=== PATIENT | female | born 1960 | race Caucasian/White ===

== ENCOUNTER 2024-10-16 16:25 | Inpatient (IN) | payer MEDICARE ==
[~2024-10-16] VITALS: Ht 160 cm; Wt 93.2 kg
[2024-10-16 17:13] LABS: BASO # 0.1 10^3/uL (0.0-0.2); BASO % 0.7 % (0.0-1.0); EOS # 0.4 10^3/uL (0.0-0.5); EOS % 4.6 % (0.0-3.0); HEMATOCRIT 31.8 % (36.0-47.0); HEMOGLOBIN 9.8 g/dl (12.0-15.5); LYMPH # 1.6 10^3/uL (1.5-5.0); LYMPH % 16.9 % (24.0-44.0); MEAN CORPUSCULAR HEMOGLOBIN 26.3 pg (27.0-33.0); MEAN CORPUSCULAR HGB CONC 30.8 g/dl (32.0-36.5); MEAN CORPUSCULAR VOLUME 85.3 fl (80.0-96.0); MONO # 0.8 10^3/uL (0.0-0.8); NEUTROPHILS # 6.6 10^3/uL (1.5-8.5); NEUTROPHILS % 69.4 % (36.0-66.0); PLATELET COUNT, AUTOMATED 221 10^3/uL (150-450); RED BLOOD COUNT 3.73 10^6/uL (4.00-5.40); WHITE BLOOD COUNT 9.4 10^3/uL (4.0-10.0)
[2024-10-16] MEDS: METOCLOPRAMIDE INJ 10MG/2ML VIAL IV ONE (17:31)
[2024-10-16] MEDS: FUROSEMIDE 40MG/4ML VIAL IV ONE ×2 (17:31→23:29)
[2024-10-16] MEDS: NITROGLYCERIN 2% OINT 1 GM *U/D* PKT TOP ONE (17:31)
[2024-10-16 17:35] LABS: CK-MB VALUE MASS 5.3 NG/ML (<3.6)
[2024-10-16 17:38] LABS: ALBUMIN 2.2 G/DL (3.2-5.2); ALKALINE PHOSPHATASE 79 U/L (35-104); ALT/SGPT 19 U/L (7.0-40); AST/SGOT 29 U/L (<34); BILIRUBIN,DIRECT < 0.1 MG/DL (<0.4); BILIRUBIN,TOTAL 0.3 MG/DL (0.3-1.2); BLOOD UREA NITROGEN 36 MG/DL (9-23); CALCIUM LEVEL 8.1 MG/DL (8.3-10.6); CARBON DIOXIDE LEVEL 22 MMOL/L (20-31); CHLORIDE LEVEL 116 MMOL/L (98-107); CREATININE FOR GFR 2.68 MG/DL (0.55-1.30); GLUCOSE, FASTING 129 MG/DL (74-106); POTASSIUM SERUM 4.4 MMOL/L (3.5-5.1); SODIUM LEVEL 149 MMOL/L (136-145); TOTAL PROTEIN 5.7 G/DL (5.7-8.2)
[2024-10-16 17:40] LABS: THYROID STIMULATING HORMONE 6.192 uIU/ML (0.55-4.78)
[2024-10-16 17:43] LABS: CPK CREATINE PHOSPHOKINASE 749 U/L (34-145)
[2024-10-16] MEDS ORDERED: CARV12.5 PO (18:34)
[2024-10-16] MEDS ORDERED: BASA100I SC (18:34)
[2024-10-16 18:55] LABS: CK-MB VALUE MASS 6.3 NG/ML (<3.6)
[2024-10-16 18:57] LABS: MB/CK RELATIVE INDEX 0.83 (< OR =4)
[2024-10-16] MEDS: cefTRIAXone SOD 2 GM in DEXTROSE 5% (D5W) ADV/MINI-BAG 50 ML IV ONE (20:07)
[2024-10-16] MEDS ORDERED: MAALOX 30 ML SUSP *UDC PO PRN (22:35)
[2024-10-16] MEDS ORDERED: GLUCOSE 4 GM CHEW PO PRN (22:35)
[2024-10-16] MEDS ORDERED: MOM 30ML SUSPENSION UDC PO PRN (22:35)
[2024-10-16] MEDS ORDERED: DEXTROSE 50% 50ML SYRINGE IV PRN (22:35)
[2024-10-16] MEDS ORDERED: NITROGLYCERIN 0.4MG SUBL TABLET SL PRN (22:35)
[2024-10-16] MEDS ORDERED: GLUCAGON INJ 1MG VIAL SC PRN (22:35)
[2024-10-17] VITALS (7 sets, daily range): BP systolic 140–172; BP diastolic 78–100; TEMP 97.8–99.6; O2SAT 96–98
[2024-10-17] MEDS: ACETAMINOPHEN 325 MG TAB PO PRN (01:40)
[2024-10-17] MEDS: HEPARIN SOD (PORCINE) 5000UNITS/ML 1ML VIAL/SYRINGE SC SCH (06:00)
[2024-10-17 06:24] LABS: HEMATOCRIT 29.5 % (36.0-47.0); HEMOGLOBIN 9.1 g/dl (12.0-15.5); MEAN CORPUSCULAR HEMOGLOBIN 26.5 pg (27.0-33.0); MEAN CORPUSCULAR HGB CONC 30.8 g/dl (32.0-36.5); PLATELET COUNT, AUTOMATED 190 10^3/uL (150-450); RED BLOOD COUNT 3.43 10^6/uL (4.00-5.40)
[2024-10-17 06:59] LABS: PERCENT SATURATION 16.1 % (13.2-45.0)
[2024-10-17 07:07] LABS: BILIRUBIN,TOTAL 0.3 MG/DL (0.3-1.2); CALCIUM LEVEL 8.1 MG/DL (8.3-10.6); CHOLESTEROL RISK RATIO 4.21 (<5); CREATININE FOR GFR 2.77 MG/DL (0.55-1.30); GLOMERULAR FILTRATION RATE 18.3 (>45); HDL CHOLESTEROL 42.9 MG/DL (>40); LDL CHOLESTEROL 111.1 MG/DL (<100); MAGNESIUM LEVEL 1.5 MG/DL (1.8-2.4); NON-HDL-C 138.1 MG/DL; PHOSPHORUS LEVEL 4.5 MG/DL (2.4-5.1); POTASSIUM SERUM 3.6 MMOL/L (3.5-5.1); TOTAL PROTEIN 5.1 G/DL (5.7-8.2)
[2024-10-17] MEDS: INSULIN LISPRO (NovoLOG) PER UNIT SC SCH (07:28)
[2024-10-17] MEDS: MAG SULF 1GM/100ML (MAG RUN) 1 GM in IV 1 EA IV SCH (08:07)
[2024-10-17] MEDS: DOCUSATE SODIUM 100MG CAPSULE PO SCH (08:08)
[2024-10-17] MEDS: FUROSEMIDE 100MG/10ML VIAL IV SCH ×2 (08:08→17:41)
[2024-10-17] MEDS ORDERED: LEVEMIR (INSULIN DETEMIR) 1 UNITS/0.01ML SC SCH (09:00)
[2024-10-17] MEDS ORDERED: MAGNESIUM OXIDE 400MG TAB (MAG-OX) PO SCH (09:00)
[2024-10-17] MEDS ORDERED: VALSARTAN 80 MG TAB (DIOVAN) PO SCH (09:00)
[2024-10-17] MEDS ORDERED: CARV25TA PO (11:57)
[2024-10-17] MEDS ORDERED: GLIP10TA15 PO (11:57)
[2024-10-17] MEDS ORDERED: ATOR40TA75 PO (11:57)
[2024-10-17] MEDS ORDERED: FURO20TA2 PO (11:57)
[2024-10-17] MEDS ORDERED: HOME MED LIST COMPLETE! XX SCH (12:00)
[2024-10-17] MEDS ORDERED: BAYE81TA10 PO (12:13)
[2024-10-17] MEDS: ASPIRIN 81MG CHEW TABLET PO SCH (13:24)
[2024-10-17] MEDS: CARVedilol 12.5 MG TAB PO SCH (13:24)
[2024-10-17] MEDS: FLUBLOK(EGGFREE) TRIVAL(24-25) VACCINE PF 0.5ML SYRINGE 18YRS & OLDER IM.IMMUN ONE (13:26)
[2024-10-17] MEDS: PREVNAR-20 VACCINE 0.5ML SYRINGE IM.IMMUN ONE (14:57)
[2024-10-17] MEDS: SPIRONOLACTONE 25 MG TAB PO SCH (17:41)
[2024-10-17] MEDS: cefTRIAXone SOD 1 GM in DEXTROSE 5% (D5W) ADV/MINI-BAG 50 ML IV SCH (20:05)
[2024-10-17] MEDS: MAGNESIUM OXIDE 400MG TAB (MAG-OX) PO SCH (20:06)
[2024-10-17] MEDS: ATORVASTATIN 20 MG TAB PO SCH (20:06)
[2024-10-18 03:32] VITALS: BP 140/90; TEMP 97.5; O2SAT 95
[2024-10-18 06:30] LABS: HEMATOCRIT 28.1 % (36.0-47.0); HEMOGLOBIN 8.9 g/dl (12.0-15.5); MEAN CORPUSCULAR HEMOGLOBIN 27.1 pg (27.0-33.0); MEAN CORPUSCULAR HGB CONC 31.7 g/dl (32.0-36.5); MEAN CORPUSCULAR VOLUME 85.4 fl (80.0-96.0); PLATELET COUNT, AUTOMATED 201 10^3/uL (150-450); RED BLOOD COUNT 3.29 10^6/uL (4.00-5.40)
[2024-10-18 07:01] LABS: BILIRUBIN,TOTAL 0.2 MG/DL (0.3-1.2); CALCIUM LEVEL 8.3 MG/DL (8.3-10.6); CREATININE FOR GFR 2.86 MG/DL (0.55-1.30); GLOMERULAR FILTRATION RATE 17.6 (>45); PHOSPHORUS LEVEL 4.4 MG/DL (2.4-5.1); POTASSIUM SERUM 3.8 MMOL/L (3.5-5.1); TOTAL PROTEIN 5.1 G/DL (5.7-8.2)
[2024-10-18 08:00] VITALS: BP 146/84; TEMP 96.8; O2SAT 98
[2024-10-18 12:00] VITALS: BP 162/74; TEMP 97.4; O2SAT 96
[2024-10-18] MEDS: FERRIC CARBOXYMALTOSE INJ 750 MG, VIAL MATE ADAPTER 1 EACH in NS 100 ML IV ONE (14:55)
[2024-10-18 15:21] VITALS: BP 158/84; TEMP 97.4; O2SAT 98
[2024-10-18 19:48] VITALS: BP 164/84; TEMP 98.4; O2SAT 97
[2024-10-18] MEDS: LEVEMIR (INSULIN DETEMIR) 1 UNITS/0.01ML SC SCH (20:31)
[2024-10-18 23:14] VITALS: BP 152/80; TEMP 98; O2SAT 94
[2024-10-19 04:23] VITALS: BP 158/78; TEMP 98.2; O2SAT 95
[2024-10-19 07:19] LABS: HEMATOCRIT 28.7 % (36.0-47.0); HEMOGLOBIN 9.2 g/dl (12.0-15.5); MEAN CORPUSCULAR HEMOGLOBIN 27.5 pg (27.0-33.0); MEAN CORPUSCULAR HGB CONC 32.1 g/dl (32.0-36.5); MEAN CORPUSCULAR VOLUME 85.7 fl (80.0-96.0); PLATELET COUNT, AUTOMATED 201 10^3/uL (150-450); RED BLOOD COUNT 3.35 10^6/uL (4.00-5.40); WHITE BLOOD COUNT 7.1 10^3/uL (4.0-10.0)
[2024-10-19 07:46] LABS: BILIRUBIN,TOTAL 0.3 MG/DL (0.3-1.2); CALCIUM LEVEL 8.9 MG/DL (8.3-10.6); CREATININE FOR GFR 2.84 MG/DL (0.55-1.30); GLOMERULAR FILTRATION RATE 17.8 (>45); PHOSPHORUS LEVEL 4.5 MG/DL (2.4-5.1); POTASSIUM SERUM 3.7 MMOL/L (3.5-5.1); TOTAL PROTEIN 5.2 G/DL (5.7-8.2)
[2024-10-19 07:47] LABS: PTH INTACT 100.9 PG/ML (18.5-88.0)
[2024-10-19] MEDS: LEVEMIR (INSULIN DETEMIR) 1 UNITS/0.01ML SC SCH (08:08)
[2024-10-19 08:25] VITALS: BP 144/60; TEMP 97.8; O2SAT 96
[2024-10-19 11:32] VITALS: BP 132/74; TEMP 98.2; O2SAT 97
[2024-10-19] MEDS ORDERED: FERRIC CARBOXYMALTOSE INJ 750 MG, VIAL MATE ADAPTER 1 EACH in NS 100 ML IV ONE (12:25)
[2024-10-19 15:55] VITALS: BP 158/86; TEMP 98.1; O2SAT 94
[2024-10-19 20:12] VITALS: BP 153/82; TEMP 97; O2SAT 93
[2024-10-19 23:04] VITALS: BP 147/82; TEMP 96.8; O2SAT 95
[2024-10-20 03:00] VITALS: BP 149/82; TEMP 97.1; O2SAT 95
[2024-10-20 06:46] LABS: HEMATOCRIT 27.4 % (36.0-47.0); HEMOGLOBIN 8.8 g/dl (12.0-15.5); MEAN CORPUSCULAR HEMOGLOBIN 27.2 pg (27.0-33.0); MEAN CORPUSCULAR HGB CONC 32.1 g/dl (32.0-36.5); MEAN CORPUSCULAR VOLUME 84.8 fl (80.0-96.0); PLATELET COUNT, AUTOMATED 198 10^3/uL (150-450); RED BLOOD COUNT 3.23 10^6/uL (4.00-5.40); WHITE BLOOD COUNT 7.8 10^3/uL (4.0-10.0)
[2024-10-20 06:50] LABS: ALBUMIN 1.9 G/DL (3.2-5.2); BILIRUBIN,TOTAL 0.2 MG/DL (0.3-1.2); CALCIUM LEVEL 8.9 MG/DL (8.3-10.6); CREATININE FOR GFR 2.83 MG/DL (0.55-1.30); GLOMERULAR FILTRATION RATE 17.8 (>45); PHOSPHORUS LEVEL 4.9 MG/DL (2.4-5.1); POTASSIUM SERUM 3.5 MMOL/L (3.5-5.1); TOTAL PROTEIN 5.2 G/DL (5.7-8.2)
[2024-10-20 07:56] VITALS: BP 158/82; TEMP 97.4; O2SAT 96
[2024-10-20 09:38] VITALS: BP 162/74
[2024-10-20] MEDS: DARBEPOETIN 100MCG/0.5ML *NON-DIALYSIS* SYRINGE SC SCH (10:28)
[2024-10-20] MEDS: POTASSIUM CHLORIDE 10MEQ SR TABLET PO ONE (13:09)
[2024-10-20] MEDS ORDERED: TORSEMIDE (DEMADEX) 50 MG PER 1/2 TAB PO SCH (17:00)
[2024-10-20] MEDS ORDERED: TORS100T PO (17:03)
[2024-10-20] MEDS ORDERED: ALDA25TA2 PO (17:03)
[2024-10-20] MEDS ORDERED: POTA-151 PO (17:06)
== END 2024-10-20 18:07 | disposition home health service (06) | DRG 291 ==
LOC: M ED 16:25 → M ED INP 22:33 → M PCU 10-17 03:58
PROVIDERS: ADMIT Student in an Organized Health Care Education/Training Program; ATTEND Student in an Organized Health Care Education/Training Program
DX: I13.0 Hypertensive heart and chronic kidney disease with heart failure and stage 1 through stage 4 chronic kidney disease, or unspecified chronic kidney disease (principal); I50.33 Acute on chronic diastolic (congestive) heart failure; N39.0 Urinary tract infection, site not specified; E87.0 Hyperosmolality and hypernatremia; N17.9 Acute kidney failure, unspecified; N18.4 Chronic kidney disease, stage 4 (severe); E78.5 Hyperlipidemia, unspecified; I25.10 Atherosclerotic heart disease of native coronary artery without angina pectoris; E83.42 Hypomagnesemia; E11.22 Type 2 diabetes mellitus with diabetic chronic kidney disease; B96.20 Unspecified Escherichia coli [E. coli] as the cause of diseases classified elsewhere; D50.9 Iron deficiency anemia, unspecified; D63.1 Anemia in chronic kidney disease

== ENCOUNTER 2024-11-06 12:51 | Inpatient (IN) | payer MEDICARE, MEDICAID ==
[~2024-11-06] VITALS: Ht 160 cm; Wt 86.1 kg
[~2024-11-06 12:51] MED LIST: ALDA25TA2 PO; ATOR40TA75 PO; BASA100I SC; BAYE81TA10 PO; CARV12.5 PO; CARV25TA PO; FURO20TA2 PO; GLIP10TA15 PO; POTA-151 PO; TORS100T PO
[2024-11-06 13:33] LABS: BASO # 0.1 10^3/uL (0.0-0.2); BASO % 0.7 % (0.0-1.0); EOS # 0.1 10^3/uL (0.0-0.5); EOS % 1.7 % (0.0-3.0); HEMOGLOBIN 12.5 g/dl (12.0-15.5); LYMPH # 1.6 10^3/uL (1.5-5.0); LYMPH % 18.9 % (24.0-44.0); MEAN CORPUSCULAR HEMOGLOBIN 27.7 pg (27.0-33.0); MEAN CORPUSCULAR HGB CONC 32.1 g/dl (32.0-36.5); MEAN CORPUSCULAR VOLUME 86.5 fl (80.0-96.0); MONO # 0.6 10^3/uL (0.0-0.8); NEUTROPHILS % 71.2 % (36.0-66.0); PLATELET COUNT, AUTOMATED 280 10^3/uL (150-450); RED BLOOD COUNT 4.51 10^6/uL (4.00-5.40); WHITE BLOOD COUNT 8.4 10^3/uL (4.0-10.0)
[2024-11-06 14:13] LABS: CALCIUM LEVEL 9.8 MG/DL (8.3-10.6); CREATININE FOR GFR 6.84 MG/DL (0.55-1.30); GLOMERULAR FILTRATION RATE 6.4 (>45); POTASSIUM SERUM 7.9 MMOL/L (3.5-5.1)
[2024-11-06 15:14] LABS: KETONE, URINE AUTO RFX NEGATIVE (NEGATIVE); NITRITE, URINE AUTO RFX NEGATIVE (NEGATIVE); RBC, URINE AUTO RFX 2 /HPF (0-3); SQUAM EPITHELIAL CELL UR AURFX 1 /HPF (0-6)
[2024-11-06 15:18] LABS: LEUKOCYTE ESTERASE UR AUTO RFX 1+ (NEGATIVE); WBC, URINE AUTO RFX 30 /HPF (0-3)
[2024-11-06 15:31] LABS: ALKALINE PHOSPHATASE 77 U/L (35-104); ALT/SGPT 20 U/L (7.0-40); AST/SGOT 38 U/L (<34); BILIRUBIN,DIRECT < 0.1 MG/DL (<0.4); BILIRUBIN,TOTAL 0.3 MG/DL (0.3-1.2); BLOOD UREA NITROGEN 67 MG/DL (9-23); CALCIUM LEVEL 9.9 MG/DL (8.3-10.6); CARBON DIOXIDE LEVEL 24 MMOL/L (20-31); CHLORIDE LEVEL 106 MMOL/L (98-107); CREATININE FOR GFR 6.84 MG/DL (0.55-1.30); GLOMERULAR FILTRATION RATE 6.4 (>45); GLUCOSE, FASTING 119 MG/DL (74-106); POTASSIUM SERUM 7.6 MMOL/L (3.5-5.1); SODIUM LEVEL 138 MMOL/L (136-145); TOTAL PROTEIN 7.1 G/DL (5.7-8.2)
[2024-11-06] MEDS: DEXTROSE 50% 50ML SYRINGE IV STA (15:57)
[2024-11-06] MEDS: HumuLIN R (REGULAR) INSULIN (NovoLIN R) **100U/ML** PER UNIT IV STA (15:57)
[2024-11-06] MEDS: CALCIUM CHLORIDE 10% 1 GM in D5W 100 ML IV ONE (15:57)
[2024-11-06] MEDS: NS (Normal Saline) 0.9% 1,000 ML IV ONE (15:58)
[2024-11-06] MEDS: PATIROMER SORBITEX CALCIUM 8.4 GM POWDER PACKET (VELTASSA) PO ONE (16:17)
[2024-11-06] MEDS: LIDOCAINE 2% 5ML JELLY UROJET TOP ONE (16:25)
[2024-11-06] MEDS ORDERED: GLUCAGON INJ 1MG VIAL SC PRN (16:35)
[2024-11-06] MEDS ORDERED: DEXTROSE 50% 50ML SYRINGE IV PRN (16:35)
[2024-11-06] MEDS: NS (Normal Saline) 0.9% 1,000 ML IV SCH (17:08)
[2024-11-06] MEDS ORDERED: ATOR1TAB21 PO (17:40)
[2024-11-06] MEDS ORDERED: TORS100T PO (17:40)
[2024-11-06] MEDS ORDERED: OMEP40CA5 PO (17:40)
[2024-11-06] MEDS ORDERED: CALC1CAP PO (17:40)
[2024-11-06] MEDS ORDERED: MAGN400T2 PO (17:40)
[2024-11-06] MEDS ORDERED: HOME MED LIST COMPLETE! XX SCH (17:45)
[2024-11-06] MEDS: INSULIN LISPRO (NovoLOG) PER UNIT SC SCH ×2 (18:35→21:00)
[2024-11-06 20:59] LABS: CALCIUM LEVEL 10.1 MG/DL (8.3-10.6); CREATININE FOR GFR 6.57 MG/DL (0.55-1.30); GLOMERULAR FILTRATION RATE 6.7 (>45); POTASSIUM SERUM 6.3 MMOL/L (3.5-5.1)
[2024-11-06] MEDS: HEPARIN SOD (PORCINE) 5000UNITS/ML 1ML VIAL/SYRINGE SC SCH (22:02)
[2024-11-07 00:49] LABS: CALCIUM LEVEL 9.8 MG/DL (8.3-10.6); CREATININE FOR GFR 6.54 MG/DL (0.55-1.30); GLOMERULAR FILTRATION RATE 6.8 (>45); POTASSIUM SERUM 6.8 MMOL/L (3.5-5.1)
[2024-11-07] MEDS: ALBUTEROL SULFATE 2.5MG/0.5ML INH NEB SOLN NEB ONE (01:53)
[2024-11-07 03:31] LABS: HEMATOCRIT 34.5 % (36.0-47.0); HEMOGLOBIN 10.9 g/dl (12.0-15.5); MEAN CORPUSCULAR HEMOGLOBIN 27.6 pg (27.0-33.0); MEAN CORPUSCULAR HGB CONC 31.6 g/dl (32.0-36.5); MEAN CORPUSCULAR VOLUME 87.3 fl (80.0-96.0); PLATELET COUNT, AUTOMATED 237 10^3/uL (150-450); RED BLOOD COUNT 3.95 10^6/uL (4.00-5.40); WHITE BLOOD COUNT 10.5 10^3/uL (4.0-10.0)
[2024-11-07 03:55] LABS: CALCIUM LEVEL 9.4 MG/DL (8.3-10.6); CREATININE FOR GFR 6.44 MG/DL (0.55-1.30); GLOMERULAR FILTRATION RATE 6.9 (>45); POTASSIUM SERUM 6.2 MMOL/L (3.5-5.1)
[2024-11-07 07:21] LABS: CALCIUM LEVEL 9.5 MG/DL (8.3-10.6); CREATININE FOR GFR 6.31 MG/DL (0.55-1.30); GLOMERULAR FILTRATION RATE 7.1 (>45); POTASSIUM SERUM 6.3 MMOL/L (3.5-5.1)
[2024-11-07] MEDS: GLUCOSE 4 GM CHEW PO PRN (07:55)
[2024-11-07] MEDS: SODIUM BICARBONATE 150 MEQ in D5W 1,000 ML IV SCH (08:31)
[2024-11-07] MEDS: PATIROMER SORBITEX CALCIUM 8.4 GM POWDER PACKET (VELTASSA) PO ONE ×2 (08:53→13:47)
[2024-11-07 09:47] LABS: PHOSPHORUS LEVEL 7.8 MG/DL (2.4-5.1)
[2024-11-07] MEDS: MAGNESIUM OXIDE 400MG TAB (MAG-OX) PO SCH (10:20)
[2024-11-07] MEDS: OMEPRAZOLE 20MG CAP PO SCH (10:20)
[2024-11-07] MEDS: ASPIRIN 81MG ENTERIC TABLET PO SCH (10:20)
[2024-11-07] MEDS: ATORVASTATIN 20 MG TAB PO SCH (10:21)
[2024-11-07] MEDS: CALCIUM ACETATE 667MG GELCAP PO SCH ×2 (10:23→18:08)
[2024-11-07 10:47] VITALS: BP 143/67; TEMP 97.4; O2SAT 100
[2024-11-07 12:29] LABS: CALCIUM LEVEL 9.1 MG/DL (8.3-10.6); CREATININE FOR GFR 6.24 MG/DL (0.55-1.30); GLOMERULAR FILTRATION RATE 7.2 (>45); POTASSIUM SERUM 5.8 MMOL/L (3.5-5.1)
[2024-11-07] MEDS ORDERED: PATIROMER SORBITEX CALCIUM 8.4 GM POWDER PACKET (VELTASSA) PO ONE (16:00)
[2024-11-07 16:23] VITALS: BP 151/72; TEMP 97; O2SAT 99
[2024-11-07 18:48] LABS: CALCIUM LEVEL 8.8 MG/DL (8.3-10.6); CREATININE FOR GFR 6.03 MG/DL (0.55-1.30); GLOMERULAR FILTRATION RATE 7.4 (>45); POTASSIUM SERUM 5.1 MMOL/L (3.5-5.1)
[2024-11-07 19:43] VITALS: BP 138/78; TEMP 97.6; O2SAT 99
[2024-11-07 23:12] VITALS: BP 140/80; TEMP 97.2; O2SAT 98
[2024-11-08 03:14] VITALS: BP 136/60; TEMP 97.3; O2SAT 98
[2024-11-08 05:55] LABS: BASO % 0.6 % (0.0-1.0); EOS # 0.2 10^3/uL (0.0-0.5); EOS % 2.3 % (0.0-3.0); HEMATOCRIT 32.5 % (36.0-47.0); HEMOGLOBIN 10.6 g/dl (12.0-15.5); LYMPH # 1.5 10^3/uL (1.5-5.0); MEAN CORPUSCULAR HEMOGLOBIN 27.7 pg (27.0-33.0); MEAN CORPUSCULAR HGB CONC 32.6 g/dl (32.0-36.5); MEAN CORPUSCULAR VOLUME 84.9 fl (80.0-96.0); MONO # 0.5 10^3/uL (0.0-0.8); NEUTROPHILS # 4.4 10^3/uL (1.5-8.5); NEUTROPHILS % 66.3 % (36.0-66.0); PLATELET COUNT, AUTOMATED 186 10^3/uL (150-450); RED BLOOD COUNT 3.83 10^6/uL (4.00-5.40); WHITE BLOOD COUNT 6.6 10^3/uL (4.0-10.0)
[2024-11-08 06:19] LABS: CREATININE FOR GFR 5.84 MG/DL (0.55-1.30); GLOMERULAR FILTRATION RATE 7.7 (>45); POTASSIUM SERUM 4.7 MMOL/L (3.5-5.1)
[2024-11-08] MEDS: NS (Normal Saline) 0.9% 1,000 ML IV SCH (07:10)
[2024-11-08 07:40] VITALS: BP 156/75; TEMP 98.4; O2SAT 95
[2024-11-08] MEDS: AMOXICILLIN 500 MG CAP PO SCH (11:03)
[2024-11-08] MEDS: CARVedilol 12.5 MG TAB PO SCH (11:03)
[2024-11-08 15:31] VITALS: BP 153/72; TEMP 98.1; O2SAT 97
[2024-11-08 19:33] VITALS: BP 148/67; TEMP 97.5; O2SAT 97
[2024-11-09] VITALS (7 sets, daily range): BP systolic 104–143; BP diastolic 54–72; TEMP 97.2–100.4; O2SAT 94–98
[2024-11-09 06:34] LABS: BASO % 0.5 % (0.0-1.0); EOS # 0.1 10^3/uL (0.0-0.5); HEMATOCRIT 32.8 % (36.0-47.0); HEMOGLOBIN 10.5 g/dl (12.0-15.5); LYMPH # 0.3 10^3/uL (1.5-5.0); LYMPH % 4.1 % (24.0-44.0); MEAN CORPUSCULAR HEMOGLOBIN 27.7 pg (27.0-33.0); MEAN CORPUSCULAR VOLUME 86.5 fl (80.0-96.0); MONO # 0.4 10^3/uL (0.0-0.8); NEUTROPHILS % 88.8 % (36.0-66.0); PLATELET COUNT, AUTOMATED 175 10^3/uL (150-450); RED BLOOD COUNT 3.79 10^6/uL (4.00-5.40); WHITE BLOOD COUNT 7.8 10^3/uL (4.0-10.0)
[2024-11-09 07:00] LABS: FERRITIN 192.3 NG/ML (7.3-270.7); PERCENT SATURATION 11.8 % (13.2-45.0)
[2024-11-09 07:01] LABS: ALBUMIN 2.3 G/DL (3.2-5.2); CALCIUM LEVEL 8.8 MG/DL (8.3-10.6); CREATININE FOR GFR 5.61 MG/DL (0.55-1.30); GLOMERULAR FILTRATION RATE 8.1 (>45); MAGNESIUM LEVEL 1.5 MG/DL (1.8-2.4); PHOSPHORUS LEVEL 4.6 MG/DL (2.4-5.1); POTASSIUM SERUM 4.9 MMOL/L (3.5-5.1)
[2024-11-09] MEDS: MAG SULF 1GM/100ML (MAG RUN) 1 GM in IV 1 EA IV SCH (09:13)
[2024-11-09] MEDS: ACETAMINOPHEN 325 MG TAB PO ONE (10:10)
[2024-11-09] MEDS: FERRIC CARBOXYMALTOSE INJ 750 MG, VIAL MATE ADAPTER 1 EACH in NS 100 ML IV ONE (12:00)
[2024-11-10 03:46] VITALS: BP 141/61; TEMP 98.6; O2SAT 96
[2024-11-10 08:13] LABS: HEMATOCRIT 33.4 % (36.0-47.0); HEMOGLOBIN 10.6 g/dl (12.0-15.5); MEAN CORPUSCULAR HEMOGLOBIN 27.4 pg (27.0-33.0); MEAN CORPUSCULAR HGB CONC 31.7 g/dl (32.0-36.5); MEAN CORPUSCULAR VOLUME 86.3 fl (80.0-96.0); PLATELET COUNT, AUTOMATED 152 10^3/uL (150-450); RED BLOOD COUNT 3.87 10^6/uL (4.00-5.40); WHITE BLOOD COUNT 5.7 10^3/uL (4.0-10.0)
[2024-11-10 08:31] VITALS: BP 159/72
[2024-11-10 09:19] LABS: ALBUMIN 2.2 G/DL (3.2-5.2); CALCIUM LEVEL 9.2 MG/DL (8.3-10.6); CREATININE FOR GFR 5.2 MG/DL (0.55-1.30); GLOMERULAR FILTRATION RATE 8.8 (>45); PHOSPHORUS LEVEL 4.8 MG/DL (2.4-5.1); POTASSIUM SERUM 4.4 MMOL/L (3.5-5.1)
[2024-11-10] MEDS ORDERED: TORS100T PO ×2 (10:42→12:17)
[2024-11-10 12:00] VITALS: BP 150/68; TEMP 98.2; O2SAT 98
== END 2024-11-10 13:32 | disposition home or self-care (01) | DRG 640 ==
LOC: M ED 12:51 → M ED INP 16:31 → M PCU 11-07 10:43 → M MSPAV 11-09 16:45
PROVIDERS: ADMIT Internal Medicine; ATTEND Student in an Organized Health Care Education/Training Program
DX: E87.5 Hyperkalemia (principal); N17.0 Acute kidney failure with tubular necrosis; N39.0 Urinary tract infection, site not specified; I50.32 Chronic diastolic (congestive) heart failure; I13.0 Hypertensive heart and chronic kidney disease with heart failure and stage 1 through stage 4 chronic kidney disease, or unspecified chronic kidney disease; N17.9 Acute kidney failure, unspecified; N18.4 Chronic kidney disease, stage 4 (severe); E87.20 Acidosis, unspecified; E11.22 Type 2 diabetes mellitus with diabetic chronic kidney disease; I25.10 Atherosclerotic heart disease of native coronary artery without angina pectoris; D63.1 Anemia in chronic kidney disease; E78.5 Hyperlipidemia, unspecified; K21.9 Gastro-esophageal reflux disease without esophagitis; I25.2 Old myocardial infarction; Z79.899 Other long term (current) drug therapy; Z95.2 Presence of prosthetic heart valve; Z98.49 Cataract extraction status, unspecified eye; Z79.4 Long term (current) use of insulin; I27.20 Pulmonary hypertension, unspecified; I08.3 Combined rheumatic disorders of mitral, aortic and tricuspid valves

== ENCOUNTER → 2024-11-17 | Outpatient (CLI) | payer MEDICARE, MEDICAID ==
[~2024-11-17] MED LIST changes: +ATOR1TAB21 PO; +CALC1CAP PO; +MAGN400T2 PO; +OMEP40CA5 PO
[2024-11-17 14:02] LABS: BASO # 0.1 10^3/uL (0.0-0.2); BASO % 0.8 % (0.0-1.0); EOS # 0.1 10^3/uL (0.0-0.5); HEMATOCRIT 36.3 % (36.0-47.0); HEMOGLOBIN 11.8 g/dl (12.0-15.5); LYMPH # 1.2 10^3/uL (1.5-5.0); LYMPH % 12.7 % (24.0-44.0); MEAN CORPUSCULAR HEMOGLOBIN 27.9 pg (27.0-33.0); MEAN CORPUSCULAR HGB CONC 32.5 g/dl (32.0-36.5); MEAN CORPUSCULAR VOLUME 85.8 fl (80.0-96.0); MONO # 0.6 10^3/uL (0.0-0.8); MONO % 5.9 % (2.0-8.0); NEUTROPHILS # 7.7 10^3/uL (1.5-8.5); NEUTROPHILS % 78.3 % (36.0-66.0); PLATELET COUNT, AUTOMATED 248 10^3/uL (150-450); RED BLOOD COUNT 4.23 10^6/uL (4.00-5.40); WHITE BLOOD COUNT 9.8 10^3/uL (4.0-10.0)
[2024-11-17 14:28] LABS: PERCENT SATURATION 25.8 % (13.2-45.0)
[2024-11-17 14:29] LABS: FERRITIN 989.2 NG/ML (7.3-270.7)
[2024-11-17 15:14] LABS: ALBUMIN 2.7 G/DL (3.2-5.2); BILIRUBIN,TOTAL 0.3 MG/DL (0.3-1.2); CALCIUM LEVEL 8.9 MG/DL (8.3-10.6); CHOLESTEROL RISK RATIO 4.4 (<5); CREATININE FOR GFR 4.7 MG/DL (0.55-1.30); GLOMERULAR FILTRATION RATE 9.9 (>45); HDL CHOLESTEROL 33.4 MG/DL (>40); LDL CHOLESTEROL 63.6 MG/DL (<100); MAGNESIUM LEVEL 2.3 MG/DL (1.8-2.4); NON-HDL-C 113.6 MG/DL; POTASSIUM SERUM 4.1 MMOL/L (3.5-5.1); TOTAL PROTEIN 6.6 G/DL (5.7-8.2)
[2024-11-17 15:59] LABS: CREATININE, URINE 102.6 MG/DL
[2024-11-17 16:16] LABS: MAU/CREAT RATIO 2760.2 MCG/MG (0.0-30.0)
== END ==
LOC: M PLALAB 11:34
PROVIDERS: ATTEND Student in an Organized Health Care Education/Training Program
DX: D64.9 Anemia, unspecified (principal); E11.22 Type 2 diabetes mellitus with diabetic chronic kidney disease; N18.4 Chronic kidney disease, stage 4 (severe); E83.42 Hypomagnesemia; Z86.79 Personal history of other diseases of the circulatory system

== ENCOUNTER → 2024-12-01 | Outpatient (REF) | payer MEDICARE, MEDICAID ==
[2024-12-01 17:53] LABS: HEPATITIS B SURFACE ANTIBODY NEGATIVE (POSITIVE)
[2024-12-01 18:05] LABS: HEPATITIS B SURFACE ANTIGEN NEGATIVE (NEGATIVE)
[2024-12-01 18:26] LABS: HEPATITIS B CORE ANTIBODY IGM NEGATIVE (NEGATIVE); HEPATITIS C VIRUS ABY INDEX 0.03 INDEX (<0.8)
== END ==
LOC: M LAB REF 17:14
PROVIDERS: ATTEND Internal Medicine Nephrology
DX: N18.6 End stage renal disease (principal); Z11.59 Encounter for screening for other viral diseases

== ENCOUNTER → 2024-12-10 | Outpatient (REF) | payer MEDICARE, MEDICAID | LOC: M LAB REF 12:56 | PROVIDERS: ATTEND Student in an Organized Health Care Education/Training Program | DX: R30.0 Dysuria (principal) ==

== ENCOUNTER 2024-12-30 09:39 | Day surgery (SDC) | payer MEDICARE, MEDICAID ==
[~2024-12-30] VITALS: Ht 160 cm; Wt 82.4 kg
[2024-12-30] MEDS: NS (Normal Saline) 0.9% 1,000 ML IV SCH (11:01)
[2024-12-30] MEDS: LR 1,000 ML IV SCH ×2 (11:01→13:30)
[2024-12-30] MEDS: CelecoXIB 400 MG CAP PO ONE (11:12)
[2024-12-30] MEDS ORDERED: fentaNYL 100 MCG/2 ML INJECTION As Ordered ONE (11:28)
[2024-12-30] MEDS ORDERED: ONDANSETRON 4MG 2ML VIAL As Ordered ONE (11:28)
[2024-12-30] MEDS ORDERED: propofoL 200 MG/20 ML VIAL As Ordered ONE (11:28)
[2024-12-30] MEDS ORDERED: LIDOCAINE 2% 100MG/5ML SDV (FOR ANES.) As Ordered ONE (11:28)
[2024-12-30] MEDS ORDERED: ROCURONIUM BROMIDE 50MG/5ML VIAL As Ordered ONE (11:28)
[2024-12-30] MEDS ORDERED: MIDAZOLAM INJ 2MG/2ML VIAL As Ordered ONE (11:29)
[2024-12-30] MEDS ORDERED: SUGAMMADEX SODIUM 500 MG/5 ML VIAL (BRIDION) As Ordered ONE (11:34)
[2024-12-30] MEDS ORDERED: dexmedeTOMIDine (4MCG/ML)200MCG/50ML BTL (PRECEDEX) As Ordered ONE (11:35)
[2024-12-30] MEDS: ceFAZolin SOD 2 GM in IV 1 EA IV ONE (12:15)
[2024-12-30] MEDS ORDERED: ACETAMINOPHEN 500 MG TAB PO ONE (12:20)
[2024-12-30] MEDS ORDERED: ACETAMINOPHEN 1000MG/100ML IV BAG As Ordered ONE (12:28)
[2024-12-30] MEDS ORDERED: ePHEDrine SULFATE 25 MG/5 ML(5MG/ML) SYRINGE As Ordered ONE (12:29)
[2024-12-30] MEDS ORDERED: PHENYLephrine 500MCG 5ML (100MCG/ML) SYRINGE As Ordered ONE (12:29)
[2024-12-30] MEDS ORDERED: GLYCOPYRROLATE INJ 0.2 MG/ML 2 ML VIAL As Ordered ONE (12:33)
[2024-12-30] MEDS: HEPARIN SOD (PORCINE) 5000UNITS/ML 1ML VIAL/SYRINGE As Ordered ONE (13:20)
[2024-12-30] MEDS ORDERED: HYDROMORPHONE HCL 0.5 MG/ 0.5 ML SYRINGE IV PRN (13:30)
[2024-12-30] MEDS ORDERED: ONDANSETRON 4MG 2ML VIAL IV PRN (13:30)
[2024-12-30] MEDS ORDERED: oxyCODONE 5MG TAB PO PRN (13:30)
[2024-12-30] MEDS ORDERED: fentaNYL 100 MCG/2 ML INJECTION IV PRN (13:30)
[2024-12-30] MEDS ORDERED: hydrALAZINE 20MG/ML 1ML VIAL As Ordered ONE (13:43)
[2024-12-30] MEDS: hydrALAZINE 20MG/ML 1ML VIAL IV PRN (13:47)
[2024-12-30 14:56] VITALS: BP 110/59; TEMP 96.9; O2SAT 98
[2024-12-30] MEDS ORDERED: NORCO, ANEXSIA 5/325MG TABLET (HYDROcodone/ACETAMINOPHEN) PO PRN (16:20)
== END 2024-12-30 15:07 | disposition home or self-care (01) ==
LOC: M SDC 09:39
PROVIDERS: ATTEND Surgery
DX: N18.6 End stage renal disease (principal); I12.0 Hypertensive chronic kidney disease with stage 5 chronic kidney disease or end stage renal disease; I25.10 Atherosclerotic heart disease of native coronary artery without angina pectoris; Z98.61 Coronary angioplasty status; E11.9 Type 2 diabetes mellitus without complications; K21.9 Gastro-esophageal reflux disease without esophagitis; E78.5 Hyperlipidemia, unspecified; Z92.3 Personal history of irradiation; Z87.891 Personal history of nicotine dependence; R21 Rash and other nonspecific skin eruption; Z79.84 Long term (current) use of oral hypoglycemic drugs; Z79.4 Long term (current) use of insulin; Z79.899 Other long term (current) drug therapy
CPT/HCPCS: 36415; 49324; 84132; J0131; J0360; J0665; J0690; J1596; J2250; J2371; J2405; J3010

== ENCOUNTER → 2024-12-30 | Outpatient (REF) | payer MEDICARE, MEDICAID ==
[~2024-12-30] MED LIST changes: +CVS50CAP PO; +MAPA500C PO; +VELT1POW3 PO
[2024-12-30 12:12] LABS: HEPATITIS B SURFACE ANTIBODY NEGATIVE (POSITIVE)
[2024-12-30 12:23] LABS: HEPATITIS B SURFACE ANTIGEN NEGATIVE (NEGATIVE)
[2024-12-30 12:44] LABS: HEPATITIS C VIRUS ABY INDEX 0.12 INDEX (<0.8)
[2024-12-30 12:45] LABS: HEPATITIS B CORE ANTIBODY IGM NEGATIVE (NEGATIVE)
== END ==
LOC: M LAB REF 10:09
PROVIDERS: ATTEND Internal Medicine Nephrology
DX: N18.6 End stage renal disease (principal); Z11.59 Encounter for screening for other viral diseases

== ENCOUNTER → 2025-03-01 | Outpatient (REF) | payer MEDICARE, MEDICAID ==
[2025-03-01 17:23] LABS: APPEARANCE, URINE TURBID (CLEAR); BACTERIA, URINE AUTO NEGATIVE (NEGATIVE); BILIRUBIN, URINE AUTO NEGATIVE (NEGATIVE); BLOOD, URINE BLOOD 2+ (NEGATIVE); COLOR, URINE YELLOW (YELLOW); GLUCOSE, URINE (UA) AUTO 1+ mg/dL (NEGATIVE); KETONE, URINE AUTO NEGATIVE (NEGATIVE); LEUKOCYTE ESTERASE, URINE AUTO 3+ (NEGATIVE); NITRITE, URINE AUTO NEGATIVE (NEGATIVE); PROTEIN, URINE AUTO 3+ mg/dL (NEGATIVE); RBC, URINE AUTO TNTC /HPF (0-3); SPECIFIC GRAVITY URINE AUTO 1.014 (1.002-1.035); SQUAMOUS EPITHELIAL CELL UR AU 3 /HPF (0-6); UROBILINOGEN, URINE AUTO 0.2 mg/dL (0.0-2.0); WBC, URINE AUTO TNTC /HPF (0-3)
== END ==
LOC: M SFHCPLAZ 16:44
PROVIDERS: ATTEND Physician Assistant Medical
DX: R30.0 Dysuria (principal)

== ENCOUNTER → 2025-05-05 | Outpatient (CLI) | payer MEDICARE, MEDICAID ==
[2025-05-05 14:40] LABS: BASO # 0.1 10^3/uL (0.0-0.2); BASO % 0.6 % (0.0-1.0); EOS # 0.1 10^3/uL (0.0-0.5); EOS % 1.2 % (0.0-3.0); LYMPH # 1.9 10^3/uL (1.5-5.0); LYMPH % 17.8 % (24.0-44.0); MONO # 0.8 10^3/uL (0.0-0.8); MONO % 7.2 % (2.0-8.0); NEUTROPHILS # 7.7 10^3/uL (1.5-8.5); NEUTROPHILS % 71.8 % (36.0-66.0); PLATELET COUNT, AUTOMATED 275 10^3/uL (150-450)
[2025-05-05 14:57] LABS: ALT/SGPT 31.0 U/L (7.0-40); AST/SGOT 26.0 U/L (<34); CALCIUM LEVEL 9.8 MG/DL (8.3-10.6); CARBON DIOXIDE LEVEL 25.0 MMOL/L (20-31); CHLORIDE LEVEL 101.0 MMOL/L (98-107); CHOLESTEROL LEVEL 166.0 MG/DL (<200); CHOLESTEROL RISK RATIO 4.09 (<5); CREATININE FOR GFR 3.44 MG/DL (0.55-1.30); GLOMERULAR FILTRATION RATE 14.2 (>45); IRON (FE) 74.0 UG/DL (50-170); LDL CHOLESTEROL 51.9 MG/DL (<100); NON-HDL-C 125.5 MG/DL; PERCENT SATURATION 29.8 % (13.2-45.0); POTASSIUM SERUM 4.9 MMOL/L (3.5-5.1); SODIUM LEVEL 143.0 MMOL/L (136-145); TRIGLYCERIDES LEVEL 368.0 MG/DL (<150)
[2025-05-05 14:58] LABS: ESTIMATED AVERAGE GLUCOSE 166.0 MG/DL (60-110)
== END ==
LOC: M PLALAB 10:40
PROVIDERS: ATTEND Student in an Organized Health Care Education/Training Program
DX: E11.22 Type 2 diabetes mellitus with diabetic chronic kidney disease (principal); E55.9 Vitamin D deficiency, unspecified

== ENCOUNTER → 2025-06-16 | Outpatient (REF) | payer MEDICARE, MEDICAID | LOC: M LAB REF 14:25 | PROVIDERS: ATTEND Nurse Practitioner Family | DX: R30.0 Dysuria (principal) ==

== ENCOUNTER 2025-07-16 17:28 | Inpatient (IN) | payer OTHER, MEDICARE, MEDICAID ==
[~2025-07-16] VITALS: Ht 160 cm; Wt 95.6 kg
[~2025-07-16 17:28] MED LIST changes: -AMLO1TAB24 PO; -AMLO2.5T3 PO; -CEFD1CAP9 PO; -DIAL800T3 PO; -GLIP2.5T46 PO; -KEPP250T5 PO; -LISI10TA22 PO; -OMEP-173 PO; -ROSU20TA86 PO
[2025-07-16] MEDS: MORPHINE 4 MG/ML 1 ML VIAL IV PRN (18:15)
[2025-07-16 18:26] LABS: BASO # 0.1 10^3/uL (0.0-0.2); BASO % 0.7 % (0.0-1.0); EOS # 0.1 10^3/uL (0.0-0.5); EOS % 1.4 % (0.0-3.0); LYMPH # 1.6 10^3/uL (1.5-5.0); LYMPH % 18.1 % (24.0-44.0); MONO # 0.7 10^3/uL (0.0-0.8); MONO % 7.7 % (2.0-8.0); NEUTROPHILS # 6.4 10^3/uL (1.5-8.5); NEUTROPHILS % 70.0 % (36.0-66.0); PLATELET COUNT, AUTOMATED 212 10^3/uL (150-450)
[2025-07-16] MEDS ORDERED: ISOVUE-370 76% 100 ML VIAL As Ordered ONE (18:30)
[2025-07-16 18:44] LABS: INR 0.93
[2025-07-16 19:03] LABS: ALT/SGPT 20 U/L (7.0-40); AST/SGOT 19 U/L (<34); CK-MB VALUE MASS 6.9 NG/ML (<3.6); CPK CREATINE PHOSPHOKINASE 228 U/L (34-145); MB/CK RELATIVE INDEX 3.02 (< OR =4)
[2025-07-16 19:47] LABS: AMPHETAMINES LEVEL URINE NEGATIVE (NEGATIVE); BARBITURATES URINE NEGATIVE (NEGATIVE); BENZODIAZEPINES URINE NEGATIVE (NEGATIVE); CANNABINOIDS URINE NEGATIVE (NEGATIVE); COCAINE METABOLITE URINE NEGATIVE (NEGATIVE); METHADONE URINE NEGATIVE (NEGATIVE); OPIATES URINE NEGATIVE (NEGATIVE); PHENCYCLIDINE URINE NEGATIVE (NEGATIVE)
[2025-07-16 19:49] LABS: CK-MB VALUE MASS 7.0 NG/ML (<3.6)
[2025-07-16 19:50] LABS: CPK CREATINE PHOSPHOKINASE 235.0 U/L (34-145); MB/CK RELATIVE INDEX 2.97 (< OR =4)
[2025-07-16] MEDS: DESMOPRESSIN ACETATE IV ONE (23:29)
[2025-07-16] MEDS: NS IV ONE (23:29)
[2025-07-17] VITALS (13 sets, daily range): BP systolic 137–177; BP diastolic 62–76; TEMP 97.6–101.1; O2SAT 96–98
[2025-07-17] MEDS ORDERED: DEXTROSE 50% 50 ML SYRINGE IV PRN (01:35)
[2025-07-17] MEDS ORDERED: GLUCOSE 4 GM CHEW PO PRN (01:35)
[2025-07-17] MEDS ORDERED: GLUCAGON INJ 1 MG VIAL SC PRN (01:35)
[2025-07-17] MEDS ORDERED: OMEP-173 PO (01:58)
[2025-07-17] MEDS ORDERED: GLIP2.5T46 PO (01:58)
[2025-07-17] MEDS ORDERED: AMLO2.5T3 PO (01:58)
[2025-07-17] MEDS ORDERED: TORS100T PO (01:58)
[2025-07-17] MEDS ORDERED: ROSU20TA86 PO (01:58)
[2025-07-17] MEDS ORDERED: DIAL800T3 PO (01:58)
[2025-07-17] MEDS ORDERED: HOME MED LIST COMPLETE! XX SCH (02:00)
[2025-07-17 03:55] LABS: CALCIUM LEVEL 8.6 MG/DL (8.3-10.6); CARBON DIOXIDE LEVEL 28.0 MMOL/L (20-31); CHLORIDE LEVEL 104.0 MMOL/L (98-107); CREATININE FOR GFR 4.56 MG/DL (0.55-1.30); GLOMERULAR FILTRATION RATE 10.1 (>45); POTASSIUM SERUM 3.9 MMOL/L (3.5-5.1); SODIUM LEVEL 142.0 MMOL/L (136-145)
[2025-07-17] MEDS: INSULIN LISPRO (NovoLOG) PER UNIT SC SCH ×2 (07:59→20:21)
[2025-07-17 09:35] LABS: ALT/SGPT 18.0 U/L (7.0-40); AST/SGOT 17.0 U/L (<34); CALCIUM LEVEL 8.6 MG/DL (8.3-10.6); CARBON DIOXIDE LEVEL 29.0 MMOL/L (20-31); CHLORIDE LEVEL 101.0 MMOL/L (98-107); CREATININE FOR GFR 4.71 MG/DL (0.55-1.30); GLOMERULAR FILTRATION RATE 9.7 (>45); MAGNESIUM LEVEL 2.1 MG/DL (1.8-2.4); PHOSPHORUS LEVEL 5.4 MG/DL (2.4-5.1); POTASSIUM SERUM 3.8 MMOL/L (3.5-5.1); SODIUM LEVEL 142.0 MMOL/L (136-145)
[2025-07-17] MEDS: ACETAMINOPHEN 325 MG TAB PO PRN (10:54)
[2025-07-17] MEDS: OMEPRAZOLE 20MG CAP PO SCH (12:53)
[2025-07-17] MEDS: CALCIUM ACETATE 667 MG GELCAP PO SCH (12:53)
[2025-07-17] MEDS: MAGNESIUM OXIDE 400 MG TAB PO SCH (12:54)
[2025-07-17] MEDS: cefTRIAXone SOD 1 GM in DEXTROSE 5% (D5W) ADV/MINI-BAG 50 ML IV SCH (13:17)
[2025-07-17] MEDS: TORSEMIDE 100 MG TAB PO SCH (14:02)
[2025-07-17] MEDS: ROSUVASTATIN 10 MG TAB PO SCH (18:32)
[2025-07-17] MEDS: ACETAMINOPHEN 500 MG TAB PO SCH (20:20)
[2025-07-18] VITALS (10 sets, daily range): BP systolic 123–187; BP diastolic 58–93; TEMP 98–100.8; O2SAT 95–97
[2025-07-18 05:06] LABS: BASO # 0.1 10^3/uL (0.0-0.2); BASO % 0.7 % (0.0-1.0); EOS # 0.2 10^3/uL (0.0-0.5); EOS % 1.8 % (0.0-3.0); LYMPH # 1.0 10^3/uL (1.5-5.0); LYMPH % 10.7 % (24.0-44.0); MONO # 0.8 10^3/uL (0.0-0.8); MONO % 8.8 % (2.0-8.0); NEUTROPHILS # 6.9 10^3/uL (1.5-8.5); NEUTROPHILS % 77.1 % (36.0-66.0); PLATELET COUNT, AUTOMATED 182 10^3/uL (150-450)
[2025-07-18 05:40] LABS: CALCIUM LEVEL 8.1 MG/DL (8.3-10.6); CARBON DIOXIDE LEVEL 27.0 MMOL/L (20-31); CHLORIDE LEVEL 101.0 MMOL/L (98-107); CREATININE FOR GFR 5.45 MG/DL (0.55-1.30); GLOMERULAR FILTRATION RATE 8.2 (>45); IRON (FE) 25.0 UG/DL (50-170); PERCENT SATURATION 13.0 % (13.2-45.0); POTASSIUM SERUM 4.1 MMOL/L (3.5-5.1); SODIUM LEVEL 138.0 MMOL/L (136-145)
[2025-07-18] MEDS: DARBEPOETIN 100 MCG/0.5 ML *NON-DIALYSIS* SYRINGE SC SCH (10:29)
[2025-07-18] MEDS: FERRIC CARBOXYMALTOSE INJ 750 MG, VIAL MATE ADAPTER 1 EACH in NS 100 ML IV ONE (10:44)
[2025-07-18] MEDS: HEPARIN SOD 5000 UNITS/ML 1 ML VIAL/SYRINGE SQ SCH (20:14)
[2025-07-18] MEDS: LanTUS (INSULIN GLARGINE INJ) 1 UNITS/0.01 ML SC SCH (20:15)
[2025-07-19] VITALS (7 sets, daily range): BP systolic 143–179; BP diastolic 66–77; TEMP 98–98.3; O2SAT 95–97
[2025-07-19 05:08] LABS: BASO # 0.1 10^3/uL (0.0-0.2); BASO % 0.7 % (0.0-1.0); EOS # 0.3 10^3/uL (0.0-0.5); EOS % 3.3 % (0.0-3.0); LYMPH # 1.2 10^3/uL (1.5-5.0); LYMPH % 15.5 % (24.0-44.0); MONO # 0.7 10^3/uL (0.0-0.8); MONO % 8.7 % (2.0-8.0); NEUTROPHILS # 5.2 10^3/uL (1.5-8.5); NEUTROPHILS % 69.8 % (36.0-66.0); PLATELET COUNT, AUTOMATED 187 10^3/uL (150-450)
[2025-07-19 05:34] LABS: CALCIUM LEVEL 8.3 MG/DL (8.3-10.6); CARBON DIOXIDE LEVEL 28.0 MMOL/L (20-31); CHLORIDE LEVEL 100.0 MMOL/L (98-107); CREATININE FOR GFR 6.01 MG/DL (0.55-1.30); GLOMERULAR FILTRATION RATE 7.3 (>45); POTASSIUM SERUM 3.9 MMOL/L (3.5-5.1); SODIUM LEVEL 137.0 MMOL/L (136-145)
[2025-07-19] MEDS ORDERED: KEPP250T5 PO (11:20)
[2025-07-19] MEDS ORDERED: CEFD1CAP9 PO (11:20)
[2025-07-19] MEDS ORDERED: AMLO1TAB24 PO (12:26)
[2025-07-19] MEDS ORDERED: CARV12.5 PO (12:26)
[2025-07-19] MEDS: amLODIPine 5 MG TAB PO ONE (12:54)
[2025-07-19] MEDS ORDERED: LISI10TA22 PO (15:41)
== END 2025-07-19 16:10 | disposition home or self-care (01) | DRG 55 ==
LOC: EDBD 17:28 → M ED 17:28 → M ED INP 07-17 00:36 → M ICU 07-17 02:31
PROVIDERS: ADMIT Internal Medicine Pulmonary Disease; ATTEND Internal Medicine
DX: S06.6X0A Traumatic subarachnoid hemorrhage without loss of consciousness, initial encounter (principal); N18.6 End stage renal disease; I25.10 Atherosclerotic heart disease of native coronary artery without angina pectoris; N39.0 Urinary tract infection, site not specified; S20.20XA Contusion of thorax, unspecified, initial encounter; E11.22 Type 2 diabetes mellitus with diabetic chronic kidney disease; I13.2 Hypertensive heart and chronic kidney disease with heart failure and with stage 5 chronic kidney disease, or end stage renal disease; I50.32 Chronic diastolic (congestive) heart failure; D63.1 Anemia in chronic kidney disease; K21.9 Gastro-esophageal reflux disease without esophagitis; Z79.899 Other long term (current) drug therapy; Z79.82 Long term (current) use of aspirin; Z79.4 Long term (current) use of insulin; I25.2 Old myocardial infarction; Z98.49 Cataract extraction status, unspecified eye; Z95.2 Presence of prosthetic heart valve; E78.5 Hyperlipidemia, unspecified; V40.5XXA Car driver injured in collision with pedestrian or animal in traffic accident, initial encounter

== ENCOUNTER → 2025-07-16 | Outpatient (REF) | payer MEDICARE, MEDICAID ==
[~2025-07-16] MED LIST changes: +AMLO1TAB24 PO; +AMLO2.5T3 PO; +CEFD1CAP9 PO; +DIAL800T3 PO; +GLIP2.5T46 PO; +KEPP250T5 PO; +LISI10TA22 PO; +OMEP-173 PO; +ROSU20TA86 PO
== END ==
LOC: M LAB REF 18:24
PROVIDERS: ATTEND Physician Assistant
DX: R30.0 Dysuria (principal)

== ENCOUNTER → 2025-08-01 | Outpatient (CLI) | payer OTHER, MEDICARE, MEDICAID ==
[~2025-08-01] MED LIST changes: +AMLO1TAB24 PO; +AMLO2.5T3 PO; +CEFD1CAP9 PO; +DIAL800T3 PO; +GLIP2.5T46 PO; +KEPP250T5 PO; +LISI10TA22 PO; +OMEP-173 PO; +ROSU20TA86 PO
== END ==
LOC: M RAD 09:36
PROVIDERS: ATTEND Neurological Surgery
DX: S06.6X0D Traumatic subarachnoid hemorrhage without loss of consciousness, subsequent encounter (principal)

== ENCOUNTER → 2025-10-06 | Outpatient (CLI) | payer MEDICARE, MEDICAID | LOC: M PLAIMG 12:05 | PROVIDERS: ATTEND Family Medicine | DX: M25.551 Pain in right hip (principal) ==